=== PATIENT | male | born 1975 | race American Indian/Alaskan Native ===

== ENCOUNTER 2017-01-08 21:14 | Emergency (ER) | payer OTHER ==
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
[2017-01-09 02:12] VITALS: BP 141/91
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
[2017-01-09] MEDS ORDERED: NORCO 5/325 PO ONE (03:24)
== END 2017-01-09 04:01 | disposition home or self-care (01) ==
LOC: ED 21:14
DX: M79.1 Myalgia (principal); V49.49XA Driver injured in collision with other motor vehicles in traffic accident, initial encounter; Y93.9 Activity, unspecified; Y92.9 Unspecified place or not applicable; Y99.9 Unspecified external cause status
CPT/HCPCS: 70450; 72125; 72131; 99283